=== PATIENT | male | born 1970 | race Caucasian/White ===

== ENCOUNTER 2021-01-02 20:40 | Emergency (ER) | payer OTHER ==
[~2021-01-02] VITALS: Ht 175.3 cm; Wt 84.7 kg
--- NOTE | 2021-01-02 20:51 | PHYS DOC ---
General Adult EDM: Chief Complaint: ALLERGIC REACTION HPI: HPI: ".. I got some bad poison aaron out break.. they started me on prednisone and bactrim.. bactrim in case it was infected.. but now after taking the bactrim .. 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 Patient initially had poison aaron type rash on forearms. Patient was started on prednisone and then Bactrim since area appeared to be inflamed and possibly infected. After patient has started Bactri m he has about rash over his entire body. Patient denies any recent travel. No specific ill contacts. No recent travel. No history immunosuppression. Patient does have allergy to penicillin. Review of Systems: Review of Systems: Constitutional: Denies fever or chills Eyes: Denies change in visual acuity HENT: Denies nasal congestion or sore throat Respiratory: Denies cough or shortness of breath Cardiovascular: Denies chest pain or edema GI: Denies abdominal pain, nausea, vomiting, bloody stools or diarrhea : Denies dysuria Musculoskeletal: Denies back pain or joint pain Integument: Complains of allergic reaction Neurologic: Denies headache, focal weakness or sensory changes Endocrine: Denies polyuria or polydipsia Lymphatic: Denies swollen glands Psychiatric: Denies depression or anxiety Family History: Family History: See nursing for home meds Current Medications: Current Meds: See nursing for home meds Allergies: Allergies: Penicillin and suspect allergic to sulfa Physical Exam: PE: Constitutional: Well developed, well nourished, moderate acute distress, non- toxic appearance. [] HENT: Normocephalic, atraumatic, bilateral external ears normal, oropharynx moist, no oral exudates, nose normal. [] Eyes: PERRLA, EOMI, conjunctiva normal, no discharge. [] Neck: Normal range of motion, no tenderness, supple, no stridor. [] Cardiovascular:Heart rate regular rhythm, no murmur [] Lungs & Thorax: Bilateral breath sounds clear to auscultation [] Abdomen: Bowel sounds normal, soft, no tenderness, no masses, no pulsatile masses. [] Skin: Warm, dry, no erythema, topical dermatitis on forearms. But has a erythemic rash over the entire rest of body. Back: No tenderness, no CVA tenderness. [] Extremities: No tenderness, no cyanosis, no clubbing, ROM intact, no edema. [] Neurologic: Alert and oriented X 3, normal motor function, normal sensory function, no focal deficits noted. [] Psychologic: Affect normal, judgement normal, mood normal. [] EKG: EKG: [] Radiology/Procedures: Radiology/Procedures: [] Heart Score: C/O Chest Pain: N/A Risk Factors: Risk Factors: DM, Current or recent (<one month) smoker, HTN, HLP, family history of CAD, obesity. Risk Scores: Score 0 - 3: 2.5% MACE over next 6 weeks - Discharge Home Score 4 - 6: 20.3% MACE over next 6 weeks - Admit for Clinical Observation Score 7 - 10: 72.7% MACE over next 6 weeks - Early Invasive Strategies Course & Med Decision Making: Course & Med Decision Making Pertinent Labs and Imaging studies reviewed. (See chart for details) Patient stop the Bactrim use. Patient use topical control of his suspect infection with salt compresses or Epson salt compresses 4 times a day then massage and Polysporin. Patient to take a prednisone taper 50 x 3 days, 40 x 3 days, 30 x 3 days, 20 x 3 days, and 10 x 3 days, and then 5 mg daily for 4 days. Patient take Pepcid 20 mg twice a day. Patient use MDI 2 puffs 4 times a day. Patient follow-up primary care. Patient return if any concerns. Impression: 1. Contact dermatitis-poison aaron 2. Systemic allergic reaction-suspect allergic to Bactrim/sulfa [] Dragon Disclaimer: Dragon Disclaimer: This electronic medical record was generated, in whole or in part, using a voice recognition dictation system. Departure Departure: Referrals: NON,STAFF (PCP) Scripts Prednisone (PREDNISONE) 50 Mg Tablet 10 MG PO as directed for allergic, #50 TAB Prov: DEANGELO PIEDRA MD 01/02/21 Famotidine (PEPCID) 20 Mg Tablet 20 MG PO BID for allergic for 30 Days, #60 TAB Prov: DEANGELO PIEDRA MD 01/02/21 Yosvany Disclaimer This chart was dictated in whole or in part using Voice Recognition software in a busy, high-work load, and often noisy Emergency Department environment. It may contain unintended and wholly unrecognized errors or omissions. DEANGELO PIEDRA MD Jan 02, 2021 20:51
[2021-01-02] MEDS ORDERED: MAGNESIUM HYDROXIDE 2,400 MG/30 ML ORAL.SUSP. PO ONE (21:00)
[2021-01-02] MEDS ORDERED: FAMO-63 PO (21:13)
[2021-01-02] MEDS ORDERED: PRED50TA PO (21:13)
[2021-01-02] MEDS ORDERED: FAMOTIDINE 20 MG/2 ML VIAL IVP ONE (21:30)
[2021-01-02] MEDS ORDERED: diphenhydrAMINE 50 MG/ML VIAL IVP ONE (21:30)
[2021-01-02] MEDS ORDERED: IV RINGERS SOLUTION,LACTATED 1,000 ML IV ONE (21:30)
[2021-01-02] MEDS ORDERED: ALBUTEROL SULFATE 8GM INHALER. INH ONE (21:30)
[2021-01-02] MEDS ORDERED: methylPREDNISolone SOD SUCC PF 125 MG/2 ML VIAL. IV ONE (21:30)
[2021-01-02 21:45] VITALS: BP 138/68
== END 2021-01-02 22:19 | disposition home or self-care (01) ==
LOC: ER 20:40
DX: L23.7 Allergic contact dermatitis due to plants, except food (principal)
CPT/HCPCS: 96361; 96374; 96375; 99284; J1200; J2930; J3490; J7120